=== PATIENT | male | born 1950 | race Caucasian/White ===

== ENCOUNTER 2016-10-17 18:40 | Emergency (ER) | payer OTHER, MEDICARE ==
[2016-10-17 18:51] VITALS: BP 153/98; PULSE 75; TEMP 99; BMI 24.4
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
[2016-10-17] MEDS ORDERED: IBUPROFEN 600 MG TABLET (FP) PO ONE ×2 (19:34→19:40)
== END 2016-10-17 21:05 | disposition home or self-care (01) ==
LOC: FER 18:40
DX: S93.401A Sprain of unspecified ligament of right ankle, initial encounter (principal); S80.11XA Contusion of right lower leg, initial encounter; V19.9XXA Pedal cyclist (driver) (passenger) injured in unspecified traffic accident, initial encounter; Y93.55 Activity, bike riding; Y92.9 Unspecified place or not applicable; Z87.891 Personal history of nicotine dependence
CPT/HCPCS: 93971-TC; 99283-25